=== PATIENT | male | born 1965 | race Caucasian/White ===

== ENCOUNTER → 2020-12-10 | Outpatient (CLI) | payer OTHER ==
[~2020-12-10] MED LIST: IBUPROFEN800 MG PO; NASONEX17 GM; PROAIR DIGIHAL90 MCG INH
== END ==
LOC: KOH-I 13:40
DX: G56.22 Lesion of ulnar nerve, left upper limb (principal); M25.522 Pain in left elbow; R20.0 Anesthesia of skin; R20.2 Paresthesia of skin; M25.512 Pain in left shoulder
CPT/HCPCS: 73030; 73070

== ENCOUNTER 2021-01-07 09:59 | Emergency (ER) | payer OTHER ==
[~2021-01-07] VITALS: Ht 165.1 cm; Wt 86.2 kg
[2021-01-07 10:47] LABS: HEMOGLOBIN 14.4 gm/dl (14.0-17.5); RED BLOOD COUNT 4.61 M/UL (4.20-5.50); WHITE BLOOD COUNT 3.6 K/UL (4.5-11.0)
[2021-01-07 11:40] LABS: BUN/CREATININE RATIO 8 (0-10)
[2021-01-07] MEDS ORDERED: IBUPROFEN800 MG PO (13:12)
[2021-01-07] MEDS ORDERED: PROAIR DIGIHAL90 MCG INH (13:12)
[2021-01-07] MEDS ORDERED: NASONEX17 GM (13:12)
== END 2021-01-07 16:46 | disposition home or self-care (01) ==
LOC: ER1 09:59
PROVIDERS: Emergency Medicine
DX: U07.1 COVID-19 (principal)
CPT/HCPCS: 71045; 80053; 82550; 82553; 84484; 85025; 85379; 85610; 85730; 93005; 99285; U0002

== ENCOUNTER → 2021-09-07 | Day surgery (SDC) | payer OTHER ==
[~2021-09-07] MED LIST changes: +DRISDOL1250 MCG PO; +FLOMAX 0.4 MG0.4 MG PO; +PHYSICIANS1000 MCG/1 INJ
== END | disposition home or self-care (01) ==
LOC: OR 07:02
DX: Z12.11 Encounter for screening for malignant neoplasm of colon (principal); D12.3 Benign neoplasm of transverse colon; D12.2 Benign neoplasm of ascending colon; K57.30 Diverticulosis of large intestine without perforation or abscess without bleeding; N42.89 Other specified disorders of prostate; Z86.010 Personal history of colon polyps; E78.5 Hyperlipidemia, unspecified; I10 Essential (primary) hypertension; Z79.899 Other long term (current) drug therapy; Z86.16 Personal history of COVID-19; Z87.891 Personal history of nicotine dependence
CPT/HCPCS: J2704; J7120